=== PATIENT | female | born 1960 | race Caucasian/White ===

== ENCOUNTER 2019-04-09 15:11 | Emergency (ER) | payer OTHER ==
[2019-04-09 15:38] VITALS: BMI 32.2
--- NOTE | 2019-04-09 15:38 | PDOC ---
History of Present Illness - General Chief Complaint: Back Pain Stated Complaint: BACK PAIN Time Seen by Provider: 04/09/19 15:37 History Source: Patient, Family Exam Limitations: Language Barrier (n[place]ish) - History of Present Illness Initial Comments: 04/09/19 16:03 58yF w PMHx DM, HTN presenting w head/back/R hip pain s/p mechanical fall. At 230p, tripped at store, fell on R side hitting R frontal/temporal head, subsequent R head pain, midline neck pain, severe midline lumbar/sacral pain, R hip pain, midsternal chest pain with breathing. Denies LOC, not on anticoagulation, vision change, nausea/vomiting, SOB, extremity weakness/ numbness. Did not take any pain meds. Past History - Past Medical History Allergies/Adverse Reactions: Allergies Allergy/AdvReac Type Severity Reaction Status Date / Time No Known Allergies Allergy Verified 04/09/19 15:25 Home Medications: Ambulatory Orders Diazepam [Valium -] 5 mg PO BID #10 tablet 03/22/14 Naproxen [Naprosyn -] 500 mg PO BID #30 tablet 03/22/14 Lidocaine 5% Patch [Lidoderm Patch -] 1 patch TP DAILY #5 patch 04/09/19 Ondansetron [Zofran *Odt*] 4 mg SL TID #10 od.tablet 04/09/19 - Surgical History Abdominal Surgery: Yes (tubal ligation) - Psycho Social/Smoking Cessation Hx Smoking History: Unknown if ever smoked Have you smoked in the past 12 months: No Information on smoking cessation initiated: No Hx Alcohol Use: No Drug/Substance Use Hx: No Substance Use Type: None Review of Systems - Review of Systems Constitutional: No: Chills, Fever HEENTM: No: Eye Pain, Nose Pain, Throat Pain Respiratory: No: Cough, Shortness of Breath Cardiac (ROS): Yes: Chest Pain. No: Palpitations, Syncope ABD/GI: No: Abdominal Distended, Constipated, Diarrhea, Nausea, Vomiting : No: Burning, Dysuria, Hematuria Musculoskeletal: Yes: Back Pain, Neck Pain Integumentary: No: Bruising, Flushing Neurological: Yes: Headache. No: Seizure Psychiatric: No: Anxiety, Depression Endocrine: No: Excessive Sweating, Intolerance to Cold, Intolerance to Heat Hematologic/Lymphatic: No: Anemia, Blood Clots *Physical Exam - Vital Signs Last Vital Signs Temp Pulse Resp BP Pulse Ox 98.3 F 77 13 133/71 100 04/09/19 15:22 04/09/19 15:22 04/09/19 15:22 04/09/19 15:22 04/09/19 15:22 - Physical Exam General Appearance: Yes: Nourished, Appropriately Dressed, Moderate Distress HEENT: positive: EOMI, BRYCE, Normal Voice. negative: Scleral Icterus (R), Scleral Icterus (L), Rhinorrhea Neck: positive: Supple. negative: Tender (no midline tenderness), Rigid Respiratory/Chest: positive: Lungs Clear, Normal Breath Sounds. negative: Chest Tender, Respiratory Distress, Crackles, Rales, Rhonchi, Stridor, Wheezing Cardiovascular: positive: Regular Rhythm, S1, S2, Tachycardia. negative: Edema , Murmur Gastrointestinal/Abdominal: positive: Normal Bowel Sounds, Flat, Soft. negative : Tender, Organomegaly Musculoskeletal: positive: Vertebral Tenderness (diffuse midline/paraspinal lumbar/sacral regions). negative: CVA Tenderness (R), CVA Tenderness (L) Extremity: positive: Pelvis Stable, Other (abrasions garo knees) Integumentary: positive: Normal Color, Other. negative: Swelling, Bruising Neurologic: positive: frame expander II-XII NML intact, Fully Oriented, Alert, Normal Mood/ Affect, Normal Response, Motor Strength 5/5, Respond to painful stimul, Responsive. negative: Sensory Deficit, Confused, Disoriented ED Treatment Course - LABORATORY CBC & Chemistry Diagram: 04/09/19 16:10 04/09/19 16:09 Medical Decision Making - Medical Decision Making 04/09/19 16:18 Head/c-spine CT - no acute bleed/infarct/mass/fracture/subluxation Chest/Lumbar/sacral/R hip XR - no acute fracture/subluxation, clear lungs EKG NSR, TWI V1, HR 77, QTc 411 --- 58yF w PMHx DM, HTN presenting w head/back/R hip pain s/p mechanical fall. Neurovascular intact. Low concern for ACS (neg trop, NSR EKG) vs CVA (no focal neuro exam deficits). Chest/Lumbar/sacral/R hip XR do not show acute fracture/subluxation or acute lung pathology. Head/c-spine CT - no acute bleed/infarct/mass/fracture/ subluxation. C-spine cleared, c-collar removed. Given 4 morphine, tylenol, lido patch, toradol 18:25 - pt vomited. Given zofran Pt ambulated without support DC home w supportive care, lidoderm patch/zofran prescriptions Discharge - Discharge Information Problems reviewed: Yes Clinical Impression/Diagnosis: Low back pain Qualifiers: Chronicity: acute Back pain laterality: bilateral Sciatica presence: without sciatica Qualified Code(s): M54.5 - Low back pain Fall Qualifiers: Encounter type: initial encounter Qualified Code(s): W19.XXXA - Unspecified fall, initial encounter Condition: Improved Disposition: HOME - Admission No - Additional Discharge Information Prescriptions: Lidocaine 5% Patch [Lidoderm Patch -] 1 patch TP DAILY #5 patch Ondansetron [Zofran *Odt*] 4 mg SL TID #10 od.tablet - Follow up/Referral Referrals: Lindsey Waldrop [Primary Care Provider] - - Patient Discharge Instructions Patient Printed Discharge Instructions: DI for Musculoskeletal Pain Additional Instructions: Ice and take tylenol or ibuprofen or the prescribed lidoderm patch if you have pain. Take the prescribed zofran if you are vomiting Please follow up with your primary care doctor Come back to the ED if you cannot urinate or pass bowel movements, leg numbness or weakness, or fall again. - Post Discharge Activity Work/Back to School Note: Back to Work
[2019-04-09] MEDS ORDERED: morphine CARPU-JECT 4 MG/1 ML DISP.SYRIN IVPUSH ONE (15:59)
[2019-04-09] MEDS ORDERED: morphine SULFATE 4 MG/ML VIAL ONE (16:27)
[2019-04-09 16:46] LABS: BASO % 0.6 % (0-2.0); EOS % 1.1 % (0-4.5); HEMATOCRIT 44.3 % (32.4-45.2); HEMOGLOBIN 14.6 GM/dL (10.7-15.3); LYMPH % 20.5 % (8-40); MCH 28.3 pg (25.7-33.7); MCHC 32.9 g/dl (32.0-36.0); MEAN CELL VOLUME 86.1 fl (80-96); MEAN PLT VOLUME 11.1 fl (7.5-11.1); MONO % 3.7 % (3.8-10.2); NEUT % 74.1 % (42.8-82.8); PLATELET COUNT 163 K/MM3 (134-434); RBC 5.14 M/mm3 (3.60-5.2); WHITE BLOOD COUNT 7.7 K/mm3 (4.0-10.0)
[2019-04-09 17:11] LABS: ALBUMIN 4.1 g/dl (3.4-5.0); BILIRUBIN,TOTAL 0.5 mg/dL (0.2-1); BLOOD UREA NITROGEN 13.4 mg/dL (7-18); CALCIUM 9.9 mg/dL (8.5-10.1); CREATININE 0.7 mg/dL (0.55-1.3); POTASSIUM 4.1 mmol/L (3.5-5.1); TOT PROT 8.1 g/dl (6.4-8.2)
--- NOTE | 2019-04-09 17:25 | PDOC ---
Documentation entered by Darby Palencia SCRIBE, acting as scribe for Diamante Barry DO. Diamante Barry DO: This documentation has been prepared by the armand, Darby Palencia SCRIBE, under my direction and personally reviewed by me in its entirety. I confirm that the documentation accurately reflects all work, treatment, procedures, and medical decision making performed by me. Attending Attestation - Resident Resident Name: Tobias Chacon - ED Attending Attestation I have performed the following: I have examined & evaluated the patient, The case was reviewed & discussed with the resident, I agree w/resident's findings & plan, Exceptions are as noted - HPI HPI: 04/09/19 17:37 The patient is a 58 year old female, with a significant past medical history of DM, HTN, who presents to the emergency department s/p mechanical fall with back , head, and right hip pain. As per patient, at approximately 2:30PM she was in a store at which time she fell onto her right side hurting the right side of her head, neck, lower back, and hip. She notes associated pleuritic midsternal chest pain. She denies any LOC or urinary/bowel incontinence. She denies recent lightheadedness, paresthesias, or dizziness. She denies recent nausea or vomiting. Allergies: NKDA Primary Care Physician: Dr. Lindsey Waldrop. - Physicial Exam PE: 04/09/19 17:48 Constitutional: Awake, alert, oriented. No acute distress. Head: Normocephalic. Atraumatic Eyes: PERRL. EOMI. Conjunctivae are not pale. ENT: Mucous membranes are moist and intact. Posterior pharynx without exudates or erythema. Uvula midline. Neck: C-collar in place. Supple. Cardiovascular: Regular rate. Regular rhythm. S1, S2 regular. Pulmonary/Chest: No evidence of respiratory distress. Clear to auscultation bilaterally No wheezing, rales or rhonchi. Abdominal: Soft and non-distended. There is no tenderness. No rebound, guarding or rigidity. Back: No midline or paraspinal tenderness, no hematoma. Right lateral lower back pain, no midline tenderness. No CVA tenderness. Musculoskeletal: No edema. No cyanosis. No clubbing. Full range of motion in all extremities. Skin: Skin is warm and dry. No petechiae. No purpura. Neurological: +able to wiggle the toes, neurovascularly intact. Alert and oriented to person, place, and time. Cranial nerves II-XII are grossly intact. Normal speech. Strength is grossly symmetric. No sensory deficits. Psychiatric: Good eye contact. Normal interaction, affect and behavior. - Medical Decision Making 04/09/19 17:25 I, Dr. Diamante Barry, DO, attest that this document has been prepared under my direction and personally reviewed by me in its entirety. I further attest, that it accurately reflects all work, treatment, procedures and medical decision -making performed by me. 04/09/19 17:51 a/p: 58yo female with a slip and fall earlier today -hit the right side of her body -unable to get up -c/o lbp, R sided neck pain -neuro intact -no loc -xrays and ct/labs ordered -xrays without acute fx -abrasions to knees -will give pain control -pending ct read -will monitor and reassess -pt will need to ambulate in order to dc to home 04/09/19 18:37 no acute findings on head ct or c spine ct 04/09/19 18:38 resident to clear the c spine 04/09/19 19:11 pt will need to ambulate and tolerate po to be dc to home will need urine to dc Heart Score/ECG Review - ECG Intrepretation Comment:: 04/09/19 17:25 sinus at 77, nl axis, nl interval, no acute st/t wave findings
[2019-04-09] MEDS ORDERED: LIDOCAINE 5% TOPICAL PATCH TP ONE (17:33)
[2019-04-09] MEDS ORDERED: ACETAMINOPHEN 1000 MG/100 ML VIAL (NON FORMULARY) IVPB ONE (17:33)
[2019-04-09] MEDS ORDERED: LIDOCAINE 5% TOPICAL PATCH ONE (17:40)
[2019-04-09] MEDS ORDERED: ACETAMINOPHEN INJECTION 100 ML IVPB ONE (17:40)
[2019-04-09] MEDS ORDERED: ONDANSETRON 4 MG/2 ML VIAL IVPUSH ONE (18:22)
[2019-04-09] MEDS ORDERED: KETOROLAC TROMETHAMINE 30 MG/1 ML VIAL IVPUSH ONE (18:29)
[2019-04-09] MEDS ORDERED: ONDANSETRON 4 MG/2 ML VIAL ONE (18:40)
[2019-04-09] MEDS ORDERED: KETOROLAC TROMETHAMINE 30 MG/1 ML VIAL ONE (18:40)
[2019-04-09 19:51] VITALS: BP 117/70; PULSE 75; TEMP 98.4
[2019-04-09 20:01] LABS: PH,URINE 8.5 (5.0-8.0); URINE APPEARANCE CLEAR; URINE BILIRUBIN NEGATIVE (NEGATIVE); URINE COLOR YELLOW; URINE GLUCOSE (UA) NEGATIVE (NEGATIVE); URINE KETONE NEGATIVE (NEGATIVE); URINE LEUK ESTERASE NEGATIVE (NEGATIVE); URINE NITRITE NEGATIVE (NEGATIVE); URINE PROTEIN NEGATIVE (NEGATIVE); URINE UROBILINOGEN 0.2 mg/dL (0.2-1.0)
[2019-04-09] MEDS ORDERED: LIDOCAINE PATCH REMOVAL MC SCH (22:00)
--- NOTE | 2019-04-10 09:18 | EKG ---
Test Reason : Blood Pressure : / mmHG Vent. Rate : 077 BPM Atrial Rate : 077 BPM P-R Int : 158 ms QRS Dur : 090 ms QT Int : 364 ms P-R-T Axes : 047 050 039 degrees QTc Int : 411 ms NORMAL SINUS RHYTHM NORMAL ECG WHEN COMPARED WITH ECG OF 30-MAR-2005 15:47, NO SIGNIFICANT CHANGE WAS FOUND Confirmed by Meena Ayala ([id number]) on 04/10/2019 9:18:35 AM Referred By: Confirmed By:Meena Ayala
== END 2019-04-09 20:13 | disposition home or self-care (01) ==
LOC: JER 15:11
PROC: 3E033GC Introduction of Other Therapeutic Substance into Peripheral Vein, Percutaneous Approach (ICD-10-PCS; principal; 2019-04-09)
PROC: 3E033NZ Introduction of Analgesics, Hypnotics, Sedatives into Peripheral Vein, Percutaneous Approach (ICD-10-PCS; 2019-04-09)
PROC: 3E033NZ Introduction of Analgesics, Hypnotics, Sedatives into Peripheral Vein, Percutaneous Approach (ICD-10-PCS; 2019-04-09)
PROC: 3E0333Z Introduction of Anti-inflammatory into Peripheral Vein, Percutaneous Approach (ICD-10-PCS; 2019-04-09)
DX: M54.5 Low back pain (principal); M54.2 Cervicalgia; M25.551 Pain in right hip; S80.212A Abrasion, left knee, initial encounter; S80.211A Abrasion, right knee, initial encounter; W01.0XXA Fall on same level from slipping, tripping and stumbling without subsequent striking against object, initial encounter; Y93.89 Activity, other specified; Y92.512 Supermarket, store or market as the place of occurrence of the external cause; Y99.8 Other external cause status; I10 Essential (primary) hypertension; E11.9 Type 2 diabetes mellitus without complications; Z98.51 Tubal ligation status
CPT/HCPCS: 36415; 70450-TC; 71045-TC-FY; 72100-TC-FY; 72125-TC; 73523-TC-FY; 80053; 81003; 82550; 84484; 85025; 93005; 93010; 96374; 96375; 99284-25; J0131

== ENCOUNTER 2021-07-12 16:55 | Emergency (ER) | payer OTHER ==
[2021-07-12 17:11] VITALS: BP 158/79; PULSE 86; TEMP 98.5; BMI 32.5
[2021-07-12] MEDS ORDERED: ACETAMINOPHEN 1000 MG/100 ML BAG IVPB ONE (17:35)
[2021-07-12] MEDS ORDERED: ACETAMINOPHEN INJECTION 100 ML IVPB ONE (17:42)
[2021-07-12 18:07] LABS: HEMATOCRIT 41.9 % (32.4-45.2); HEMOGLOBIN 14.5 G/dL (10.7-15.3); MCH 29.4 pg (25.7-33.7); MCHC 34.6 g/dl (32.0-36.0); MEAN CELL VOLUME 85.1 fl (80-96); MEAN PLT VOLUME 11.1 fl (7.5-11.1); PLATELET COUNT 143.2 10^3/uL (134-434); RBC 4.92 10^6/uL (3.60-5.2); RDW 14.9 % (11.6-15.6)
[2021-07-12 18:10] LABS: EPITHELIAL CELLS RARE /hpf
[2021-07-12 18:13] LABS: ALBUMIN 4.2 g/dl (3.4-5.0); BILIRUBIN,TOTAL 0.8 mg/dl (0.2-1); CALCIUM 10.4 mg/dl (8.5-10); CREATININE 0.6 mg/dl (0.55-1.3); TOT PROT 7.5 g/dl (6.4-8.2)
[2021-07-12 18:27] LABS: ANISOCYTOSIS RARE
== END 2021-07-12 20:10 | disposition home or self-care (01) ==
LOC: FER 16:55
PROC: 3E0333Z Introduction of Anti-inflammatory into Peripheral Vein, Percutaneous Approach (ICD-10-PCS; principal; 2021-07-12)
DX: N20.0 Calculus of kidney (principal)
CPT/HCPCS: 36415; 74176-TC; 80053; 81003; 81015; 85025; 87086; 99284-25

== ENCOUNTER 2021-08-22 07:30 | Emergency (ER) | payer OTHER ==
[2021-08-22 07:38] VITALS: BP 130/66; PULSE 70; TEMP 97.7; BMI 32.4
[2021-08-22] MEDS ORDERED: SODIUM CHLORIDE 1,000 ML IV STA (07:53)
[2021-08-22] MEDS ORDERED: ACETAMINOPHEN 1000 MG/100 ML BAG IVPB ONE ×2 (07:53→10:37)
[2021-08-22] MEDS ORDERED: ONDANSETRON 4 MG/2 ML VIAL IVPUSH ONE ×2 (07:53→10:58)
[2021-08-22] MEDS ORDERED: KETOROLAC TROMETHAMINE 30 MG/1 ML VIAL IVPUSH ONE (07:54)
[2021-08-22] MEDS ORDERED: ONDANSETRON 4 MG/2 ML VIAL ONE (07:56)
[2021-08-22] MEDS ORDERED: KETOROLAC TROMETHAMINE 30 MG/1 ML VIAL ONE (07:56)
[2021-08-22] MEDS ORDERED: morphine CARPU-JECT 4 MG/1 ML DISP.SYRIN IVPUSH ONE (08:31)
[2021-08-22 08:32] LABS: HEMATOCRIT 41.2 % (32.4-45.2); HEMOGLOBIN 14.2 G/dL (10.7-15.3); MCH 29.5 pg (25.7-33.7); MCHC 34.6 g/dl (32.0-36.0); MEAN CELL VOLUME 85.4 fl (80-96); MEAN PLT VOLUME 11.2 fl (7.5-11.1); PLATELET COUNT 164.8 10^3/uL (134-434); RBC 4.82 10^6/uL (3.60-5.2); RDW 14.3 % (11.6-15.6); WHITE BLOOD COUNT 7.8 10^3/uL (4.0-10.8)
[2021-08-22] MEDS ORDERED: morphine SULFATE 4 MG/ML VIAL ONE (08:34)
[2021-08-22 08:40] LABS: ALBUMIN 4.5 g/dl (3.4-5.0); BILIRUBIN,TOTAL 1.1 mg/dl (0.2-1); CALCIUM 10.1 mg/dl (8.5-10); CREATININE 0.7 mg/dl (0.55-1.3); TOT PROT 7.4 g/dl (6.4-8.2)
[2021-08-22 08:49] LABS: EPITHELIAL CELLS MODERATE /hpf
[2021-08-22] MEDS ORDERED: ACETAMINOPHEN INJECTION 100 ML IVPB ONE (10:42)
== END 2021-08-22 11:27 | disposition home or self-care (01) ==
LOC: FER 07:30
PROC: 3E0333Z Introduction of Anti-inflammatory into Peripheral Vein, Percutaneous Approach (ICD-10-PCS; principal; 2021-08-22)
PROC: 3E0333Z Introduction of Anti-inflammatory into Peripheral Vein, Percutaneous Approach (ICD-10-PCS; 2021-08-22)
PROC: 3E033GC Introduction of Other Therapeutic Substance into Peripheral Vein, Percutaneous Approach (ICD-10-PCS; 2021-08-22)
PROC: 3E0337Z Introduction of Electrolytic and Water Balance Substance into Peripheral Vein, Percutaneous Approach (ICD-10-PCS; 2021-08-22)
DX: N20.0 Calculus of kidney (principal)
CPT/HCPCS: 36415; 74176-TC; 80053; 81003; 81015; 85025; 87086; 99284-25

== ENCOUNTER 2022-04-26 09:03 | Emergency (ER) | payer OTHER ==
[2022-04-26] MEDS ORDERED: SODIUM CHLORIDE 0.9% 500 ML INFUS.BAG IV ONE (09:07)
[2022-04-26] MEDS ORDERED: KETOROLAC TROMETHAMINE 15 MG/ML VIAL IVPUSH ONE (09:14)
[2022-04-26 09:29] VITALS: BP 130/85; PULSE 102; RESP 16; TEMP 99.7; BMI 32.2
[2022-04-26] MEDS ORDERED: KETOROLAC TROMETHAMINE 15 MG/ML VIAL ONE (09:40)
[2022-04-26 10:26] LABS: HEMATOCRIT 43.1 % (32.4-45.2); HEMOGLOBIN 14.8 G/dL (10.7-15.3); MCH 29.2 pg (25.7-33.7); MCHC 34.2 g/dl (32.0-36.0); MEAN CELL VOLUME 85.2 fl (80-96); MEAN PLT VOLUME 10.6 fl (7.5-11.1); PLATELET COUNT 141.3 10^3/uL (134-434); RBC 5.06 10^6/uL (3.60-5.2); RDW 14.8 % (11.6-15.6); WHITE BLOOD COUNT 5.4 10^3/uL (4.0-10.8)
[2022-04-26 10:31] LABS: ALBUMIN 4.2 g/dl (3.4-5.0); BILIRUBIN,TOTAL 0.8 mg/dl (0.2-1); CALCIUM 9.5 mg/dl (8.5-10); CREATININE 0.6 mg/dl (0.55-1.3); TOT PROT 7.4 g/dl (6.4-8.2)
== END 2022-04-26 12:04 | disposition home or self-care (01) ==
LOC: FER 09:03 → SUPCPDRO 09:03 → FER 12:04
PROC: 3E033GC Introduction of Other Therapeutic Substance into Peripheral Vein, Percutaneous Approach (ICD-10-PCS; principal; 2022-04-26)
DX: J06.9 Acute upper respiratory infection, unspecified (principal)
CPT/HCPCS: 0241U-QW; 36415; 71046-TC-FY; 80053; 82550; 83605; 84484; 85027; 93005; 99285-25

== ENCOUNTER 2022-11-08 07:01 | Inpatient (IN) | payer OTHER ==
[2022-11-08 07:09] VITALS: BMI 32.2
[2022-11-08] MEDS ORDERED: ONDANSETRON 4 MG/2 ML VIAL IVPUSH ONE ×2 (07:20→13:37)
[2022-11-08] MEDS ORDERED: ACETAMINOPHEN 1000 MG/100 ML BAG IVPB ONE (07:20)
[2022-11-08] MEDS ORDERED: SODIUM CHLORIDE 0.9% 1000 ML INFUS.BAG IV ONE (07:20)
[2022-11-08] MEDS ORDERED: ACETAMINOPHEN INJECTION 100 ML IVPB ONE (07:30)
[2022-11-08] MEDS ORDERED: FAMOTIDINE 20 MG/50 ML IVPB 20 MG/50 ML MG IVPB ONE ×2 (07:30)
[2022-11-08] MEDS ORDERED: ONDANSETRON 4 MG/2 ML VIAL ONE ×2 (07:30→13:37)
[2022-11-08 08:41] LABS: HEMATOCRIT 43.8 % (32.4-45.2); HEMOGLOBIN 14.2 G/dL (10.7-15.3); MCH 28.3 pg (25.7-33.7); MCHC 32.4 g/dl (32.0-36.0); MEAN CELL VOLUME 87.4 fl (80-96); MEAN PLT VOLUME 11.6 fl (7.5-11.1); PLATELET COUNT 149.5 10^3/uL (134-434); RBC 5.01 10^6/uL (3.60-5.2); RDW 14.7 % (11.6-15.6)
[2022-11-08] MEDS ORDERED: morphine CARPU-JECT 2 MG/1 ML DISP.SYRIN IVPUSH ONE (09:15)
[2022-11-08] MEDS ORDERED: TAMSULOSIN HCL 0.4 MG CAP PO ONE (09:27)
[2022-11-08] MEDS ORDERED: CEFTRIAXONE 1 GM in DEXTROSE 5%-WATER - 100 ML IVPB ONE (09:27)
[2022-11-08] MEDS ORDERED: morphine SULFATE 4 MG/ML VIAL ONE (09:36)
[2022-11-08] MEDS ORDERED: cefTRIAXone SODIUM 1 GM VIAL ONE (09:36)
[2022-11-08] MEDS ORDERED: TAMSULOSIN HCL 0.4 MG CAP ONE (09:37)
[2022-11-08 09:44] LABS: ALBUMIN 4.6 g/dl (3.4-5.0); BLOOD UREA NITROGEN 15.6 mg/dl (7-18); CALCIUM 9.6 mg/dl (8.5-10.1); CREATININE 0.8 mg/dl (0.6-1.3); POTASSIUM 4.2 mmol/L (3.5-5.1); SGOT/AST 27.1 U/L (15-37); SGPT/ALT 35.4 U/L (7-52); TOT PROT 7.7 g/dl (6.4-8.2)
[2022-11-08 10:10] LABS: EPITHELIAL CELLS MODERATE /hpf
[2022-11-08 10:22] LABS: BILIRUBIN,TOTAL 0.9 mg/dL (0.2-1)
[2022-11-08] MEDS: INSULIN SLIDING SCALE (NOVOLOG) 1 VIAL SQ SCH ×2 (17:08→21:42)
[2022-11-08] MEDS: KETOROLAC TROMETHAMINE 30 MG/1 ML VIAL IVPUSH PRN (17:35)
[2022-11-09] MEDS: PIPERACILLIN/TAZOB 3.375 GM 3.375 GM in DEXTROSE 5%-WATER - 50 ML IVPB SCH ×2 (02:44→09:16)
[2022-11-09] MEDS: INSULIN SLIDING SCALE (NOVOLOG) 1 VIAL SQ SCH ×4 (06:07→21:17)
[2022-11-09] MEDS: amLODIPine BESYLATE 5 MG TABLET (FP) PO SCH (09:16)
[2022-11-09] MEDS: metoPROLOL SUCCINATE 25 MG TAB.SR.24H (FP) PO SCH (09:16)
[2022-11-09] MEDS: ACETAMINOPHEN 325 MG TABLET (FP) PO PRN (11:17)
[2022-11-09] MEDS: CEFTRIAXONE 1 GM in DEXTROSE 5%-WATER - 50 ML IVPB SCH (13:53)
[2022-11-09] MEDS: KETOROLAC TROMETHAMINE 30 MG/1 ML VIAL IVPUSH PRN (18:32)
[2022-11-10] MEDS: INSULIN SLIDING SCALE (NOVOLOG) 1 VIAL SQ SCH ×4 (06:00→21:07)
[2022-11-10] MEDS: CEFTRIAXONE 1 GM in DEXTROSE 5%-WATER - 50 ML IVPB SCH (09:43)
[2022-11-10] MEDS: metoPROLOL SUCCINATE 25 MG TAB.SR.24H (FP) PO SCH (09:43)
[2022-11-10] MEDS: amLODIPine BESYLATE 5 MG TABLET (FP) PO SCH (09:43)
[2022-11-10] MEDS: D5-1/2NS+20 MEQ KCL - 20 MEQ/1,000 ML INFUS.BAG IV SCH (15:15)
[2022-11-11] MEDS: INSULIN SLIDING SCALE (NOVOLOG) 1 VIAL SQ SCH ×4 (06:02→22:50)
[2022-11-11] MEDS: metoPROLOL SUCCINATE 25 MG TAB.SR.24H (FP) PO SCH ×2 (08:57→11:28)
[2022-11-11] MEDS: amLODIPine BESYLATE 5 MG TABLET (FP) PO SCH ×2 (08:57→11:28)
[2022-11-11] MEDS: CEFTRIAXONE 1 GM in DEXTROSE 5%-WATER - 50 ML IVPB SCH ×3 (08:58→09:56)
[2022-11-11] MEDS: D5-1/2NS+20 MEQ KCL - 20 MEQ/1,000 ML INFUS.BAG IV SCH (17:03)
[2022-11-12] MEDS: INSULIN SLIDING SCALE (NOVOLOG) 1 VIAL SQ SCH ×4 (07:57→23:19)
[2022-11-12] MEDS: amLODIPine BESYLATE 5 MG TABLET (FP) PO SCH (09:25)
[2022-11-12] MEDS: CEFTRIAXONE 1 GM in DEXTROSE 5%-WATER - 50 ML IVPB SCH (09:25)
[2022-11-12] MEDS: metoPROLOL SUCCINATE 25 MG TAB.SR.24H (FP) PO SCH (09:25)
[2022-11-12] MEDS: ACETAMINOPHEN 325 MG TABLET (FP) PO PRN ×2 (09:32→23:19)
[2022-11-12 10:26] LABS: POTASSIUM 4.2 mmol/L (3.5-5.1)
[2022-11-12 10:28] LABS: ALBUMIN 3.7 g/dl (3.4-5.0); BLOOD UREA NITROGEN 18.6 mg/dL (7-18)
[2022-11-12 10:31] LABS: CREATININE 0.7 mg/dL (0.55-1.3)
[2022-11-12 10:33] LABS: BILIRUBIN,TOTAL 0.7 mg/dL (0.2-1)
[2022-11-12] MEDS ORDERED: MIDAZOLAM HCL 2 MG/2 ML SINGLE DOSE VIAL ONE ×2 (10:38→11:14)
[2022-11-12] MEDS ORDERED: PROPOFOL 20 ML ONE (10:38)
[2022-11-12] MEDS ORDERED: BUPIVACAINE HCL/PF 0.5% (5MG/ML) 10 ML VIAL ONE (10:43)
[2022-11-12] MEDS ORDERED: ONDANSETRON 4 MG/2 ML VIAL IVPUSH PRN ×2 (11:11→12:28)
[2022-11-12] MEDS ORDERED: LACTATED RINGERS SOLUTION 1,000 ML IV SCH ×2 (11:15→12:28)
[2022-11-12] MEDS ORDERED: ceFAZolin SODIUM 1 GM VIAL ONE (11:35)
[2022-11-12] MEDS ORDERED: ceFAZolin SODIUM 1 GM VIAL IVPB ONE (11:36)
[2022-11-12] MEDS ORDERED: ONDANSETRON 4 MG/2 ML VIAL ONE (11:42)
[2022-11-12] MEDS ORDERED: KETOROLAC TROMETHAMINE 30 MG/1 ML VIAL IVPUSH PRN (12:28)
[2022-11-12] MEDS ORDERED: D5-1/2NS+20 MEQ KCL - 20 MEQ/1,000 ML INFUS.BAG IV SCH (12:28)
[2022-11-13] MEDS ORDERED: INSULIN SLIDING SCALE (NOVOLOG) 1 VIAL SQ ONE (07:01)
[2022-11-13] MEDS: ACETAMINOPHEN 325 MG TABLET (FP) PO PRN ×3 (08:05→22:09)
[2022-11-13] MEDS: INSULIN SLIDING SCALE (NOVOLOG) 1 VIAL SQ SCH ×4 (08:43→22:09)
[2022-11-13] MEDS: CEFTRIAXONE 1 GM in DEXTROSE 5%-WATER - 50 ML IVPB SCH (09:48)
[2022-11-13] MEDS: amLODIPine BESYLATE 5 MG TABLET (FP) PO SCH (10:00)
[2022-11-13] MEDS: metoPROLOL SUCCINATE 25 MG TAB.SR.24H (FP) PO SCH (10:00)
[2022-11-13 11:02] LABS: BASO % 0.8 % (0-2.0); EOS % 2.1 % (0-4.5); HEMATOCRIT 38.4 % (32.4-45.2); HEMOGLOBIN 12.9 GM/dL (10.7-15.3); LYMPH % 28.5 % (8-40); MCH 28.1 pg (25.7-33.7); MCHC 33.7 g/dl (32.0-36.0); MEAN CELL VOLUME 83.5 fl (80-96); MEAN PLT VOLUME 11.5 fl (7.5-11.1); MONO % 4.8 % (3.8-10.2); NEUT % 63.8 % (42.8-82.8); PLATELET COUNT 165 10^3/uL (134-434); RBC 4.59 M/mm3 (3.60-5.2); RDW 15.1 % (11.6-15.6)
[2022-11-13 11:29] LABS: POTASSIUM 4.1 mmol/L (3.5-5.1)
[2022-11-13 11:49] LABS: BLOOD UREA NITROGEN 18.2 mg/dL (7-18); CALCIUM 9.1 mg/dL (8.5-10.1)
[2022-11-13 11:50] LABS: ALBUMIN 3.7 g/dl (3.4-5.0)
[2022-11-13 11:52] LABS: CREATININE 0.7 mg/dL (0.55-1.3)
[2022-11-13 11:53] LABS: TOT PROT 6.9 g/dl (6.4-8.2)
[2022-11-14] MEDS: INSULIN SLIDING SCALE (NOVOLOG) 1 VIAL SQ SCH ×2 (06:44→11:13)
[2022-11-14 07:09] VITALS: TEMP 98.2
[2022-11-14] MEDS: metoPROLOL SUCCINATE 25 MG TAB.SR.24H (FP) PO SCH (10:07)
[2022-11-14] MEDS: amLODIPine BESYLATE 5 MG TABLET (FP) PO SCH (10:07)
[2022-11-14] MEDS: CEFTRIAXONE 1 GM in DEXTROSE 5%-WATER - 50 ML IVPB SCH (10:07)
[2022-11-14] MEDS: ACETAMINOPHEN 325 MG TABLET (FP) PO PRN (13:16)
[2022-11-14 14:50] VITALS: BP 128/64; PULSE 76; RESP 16
== END 2022-11-14 15:49 | disposition home or self-care (01) | DRG 661 ==
LOC: FER 07:01 → J5S 14:55 → UNDOADMOB 17:06 → J5S 17:06 → INTOOBSV 17:06 → OBSVTOIN 11-10 14:04
PROVIDERS: ADMIT Family Medicine; ATTEND Family Medicine
PROC: BT1DZZZ Fluoroscopy of Right Kidney, Ureter and Bladder (ICD-10-PCS; 2022-11-12)
PROC: 0T768DZ Dilation of Right Ureter with Intraluminal Device, Via Natural or Artificial Opening Endoscopic (ICD-10-PCS; principal; 2022-11-12 12:00)
DX: N13.6 Pyonephrosis (principal); I10 Essential (primary) hypertension; E11.9 Type 2 diabetes mellitus without complications; K29.60 Other gastritis without bleeding; R31.9 Hematuria, unspecified
CPT/HCPCS: 36415; 74018-TC-FY; 74176-TC; 76000-TC-FY; 80053; 81003; 81015; 82550; 82962; 84484; 85025; 85027; 87086; 93005; 94760; 99285-25; C1758; C2617; G0378

== ENCOUNTER 2022-11-27 15:19 | Inpatient (IN) | payer OTHER ==
[2022-11-27 15:25] VITALS: BMI 31.4
[2022-11-27] MEDS ORDERED: morphine CARPU-JECT 4 MG/1 ML DISP.SYRIN IVPUSH ONE (16:08)
[2022-11-27] MEDS ORDERED: SODIUM CHLORIDE 0.9% 500 ML INFUS.BAG IV ONE (16:10)
[2022-11-27] MEDS ORDERED: morphine SULFATE 4 MG/ML VIAL ONE (16:24)
[2022-11-27 16:56] LABS: BASO % 0.7 % (0-2.0); HEMATOCRIT 40.1 % (32.4-45.2); HEMOGLOBIN 13.6 GM/dL (10.7-15.3); LYMPH % 11.9 % (8-40); MCH 28.6 pg (25.7-33.7); MCHC 33.8 g/dl (32.0-36.0); MEAN CELL VOLUME 84.6 fl (80-96); MEAN PLT VOLUME 10.8 fl (7.5-11.1); NEUT % 80.4 % (42.8-82.8); PLATELET COUNT 178 10^3/uL (134-434); RBC 4.74 M/mm3 (3.60-5.2); RDW 14.7 % (11.6-15.6); WHITE BLOOD COUNT 8.7 K/mm3 (4.0-10.0)
[2022-11-27 17:03] LABS: EPI CELLS 9 /uL (0-25.1); HYALINE CASTS 0 /uL (0-3.1); URINE APPEARANCE CLEAR; URINE BACTERIA 198 /uL (0-1359); URINE BILIRUBIN NEGATIVE (NEGATIVE); URINE COLOR YELLOW; URINE GLUCOSE (UA) NEGATIVE (NEGATIVE); URINE KETONE NEGATIVE (NEGATIVE); URINE LEUK ESTERASE 2+ (NEGATIVE); URINE NITRITE NEGATIVE (NEGATIVE); URINE PROTEIN NEGATIVE (NEGATIVE); URINE UROBILINOGEN 0.2 mg/dL (0.2-1.0); URINE WBC 234 /uL (0-25.8)
[2022-11-27 17:14] LABS: POTASSIUM 4.2 mmol/L (3.5-5.1)
[2022-11-27 17:16] LABS: CALCIUM 9.6 mg/dL (8.5-10.1)
[2022-11-27 17:17] LABS: BLOOD UREA NITROGEN 15.9 mg/dL (7-18)
[2022-11-27 17:20] LABS: CREATININE 0.8 mg/dL (0.55-1.3)
[2022-11-27] MEDS ORDERED: CEFTRIAXONE 1,000 MG in DEXTROSE 5%-WATER - 50 ML IVPB ONE (18:14)
[2022-11-27] MEDS ORDERED: TAMSULOSIN HCL 0.4 MG CAP PO ONE (18:34)
[2022-11-27] MEDS ORDERED: TAMSULOSIN HCL 0.4 MG CAP ONE (18:39)
[2022-11-27] MEDS ORDERED: CEFTRIAXONE 1 GM/50 ML BAG ONE (18:39)
[2022-11-27 19:39] LABS: URINE RBC 985.3 /uL (0-23.9)
[2022-11-27 19:40] LABS: YEAST MODERATE (NEGATIVE)
[2022-11-27] MEDS ORDERED: morphine SULFATE 4 MG/ML VIAL IVPUSH PRN (21:36)
[2022-11-28] MEDS: ACETAMINOPHEN 1000 MG/100 ML BAG IVPB PRN ×4 (00:06→18:14)
[2022-11-28] MEDS: DEXTROSE 5%-NORMAL SALINE 1,000 ML IV SCH ×2 (00:06→18:14)
[2022-11-28] MEDS ORDERED: ONDANSETRON 4 MG/2 ML VIAL IVPUSH ONE (05:50)
[2022-11-28] MEDS: TAMSULOSIN HCL 0.4 MG CAP PO SCH ×2 (09:00→09:30)
[2022-11-28] MEDS: CEFTRIAXONE 1 GM in DEXTROSE 5%-WATER - 50 ML IVPB SCH (09:31)
[2022-11-28 09:39] LABS: BASO % 0.5 % (0-2.0); EOS % 0.1 % (0-4.5); HEMATOCRIT 37.4 % (32.4-45.2); HEMOGLOBIN 12.3 GM/dL (10.7-15.3); LYMPH % 5.2 % (8-40); MCH 28.2 pg (25.7-33.7); MCHC 32.9 g/dl (32.0-36.0); MEAN CELL VOLUME 85.7 fl (80-96); MEAN PLT VOLUME 11.1 fl (7.5-11.1); MONO % 5.5 % (3.8-10.2); NEUT % 88.7 % (42.8-82.8); PLATELET COUNT 150 10^3/uL (134-434); RBC 4.36 M/mm3 (3.60-5.2); RDW 14.6 % (11.6-15.6); WHITE BLOOD COUNT 7.1 K/mm3 (4.0-10.0)
[2022-11-28 09:45] LABS: POTASSIUM 4.3 mmol/L (3.5-5.1)
[2022-11-28 09:46] LABS: CALCIUM 9.1 mg/dL (8.5-10.1)
[2022-11-28 09:50] LABS: CREATININE 0.9 mg/dL (0.55-1.3)
[2022-11-29] MEDS: DEXTROSE 5%-NORMAL SALINE 1,000 ML IV SCH ×2 (01:07→19:02)
[2022-11-29] MEDS: TAMSULOSIN HCL 0.4 MG CAP PO SCH (10:38)
[2022-11-29] MEDS: CEFTRIAXONE 1 GM in DEXTROSE 5%-WATER - 50 ML IVPB SCH (10:38)
[2022-11-29] MEDS: ACETAMINOPHEN 325 MG TABLET (FP) PO PRN ×2 (11:02→17:09)
[2022-11-30] MEDS: ACETAMINOPHEN 325 MG TABLET (FP) PO PRN ×3 (00:09→18:40)
[2022-11-30] MEDS: DEXTROSE 5%-NORMAL SALINE 1,000 ML IV SCH ×2 (06:14→14:10)
[2022-11-30] MEDS: TAMSULOSIN HCL 0.4 MG CAP PO SCH (08:38)
[2022-11-30] MEDS ORDERED: PIPERACILLIN/TAZOB 3.375 GM 3.375 GM in DEXTROSE 5%-WATER - 50 ML IVPB SCH ×2 (10:00→18:00)
[2022-11-30] MEDS ORDERED: PROPOFOL 20 ML ONE (10:18)
[2022-11-30] MEDS ORDERED: MIDAZOLAM HCL 2 MG/2 ML SINGLE DOSE VIAL ONE (10:19)
[2022-11-30] MEDS ORDERED: DEXAMETHASONE SOD PHOSPHATE 4 MG/1 ML VIAL ONE (10:42)
[2022-11-30] MEDS ORDERED: ONDANSETRON 4 MG/2 ML VIAL ONE (10:42)
[2022-11-30] MEDS ORDERED: IOVERSOL 300 MG/ML ML IV ONE (11:03)
[2022-11-30] MEDS ORDERED: ONDANSETRON 4 MG/2 ML VIAL IVPUSH PRN ×2 (11:25→12:24)
[2022-11-30] MEDS ORDERED: LACTATED RINGERS SOLUTION 1,000 ML IV SCH ×2 (11:30→12:24)
[2022-11-30 12:41] LABS: EPI CELLS 12 /uL (0-25.1); HYALINE CASTS 1 /uL (0-3.1); URINE APPEARANCE CLEAR; URINE BACTERIA 2 /uL (0-1359); URINE BILIRUBIN NEGATIVE (NEGATIVE); URINE COLOR YELLOW; URINE GLUCOSE (UA) NEGATIVE (NEGATIVE); URINE KETONE NEGATIVE (NEGATIVE); URINE LEUK ESTERASE NEGATIVE (NEGATIVE); URINE NITRITE NEGATIVE (NEGATIVE); URINE PROTEIN TRACE (NEGATIVE); URINE RBC 49 /uL (0-23.9); URINE UROBILINOGEN 0.2 mg/dL (0.2-1.0); URINE WBC 47 /uL (0-25.8)
[2022-11-30] MEDS: PIPERACILLIN/TAZOB 3.375 GM 3.375 GM in DEXTROSE 5%-WATER - 50 ML IVPB SCH ×4 (14:11→18:31)
[2022-11-30 15:42] LABS: BASO % 0.7 % (0-2.0); EOS % 0.2 % (0-4.5); HEMATOCRIT 34.3 % (32.4-45.2); HEMOGLOBIN 11.2 GM/dL (10.7-15.3); LYMPH % 7.6 % (8-40); MCH 27.9 pg (25.7-33.7); MCHC 32.7 g/dl (32.0-36.0); MEAN CELL VOLUME 85.2 fl (80-96); MEAN PLT VOLUME 10.7 fl (7.5-11.1); MONO % 2.5 % (3.8-10.2); PLATELET COUNT 129 10^3/uL (134-434); RBC 4.02 M/mm3 (3.60-5.2); RDW 14.2 % (11.6-15.6); WHITE BLOOD COUNT 4.8 K/mm3 (4.0-10.0)
[2022-11-30 16:03] LABS: POTASSIUM 3.6 mmol/L (3.5-5.1)
[2022-11-30 16:04] LABS: CALCIUM 8.7 mg/dL (8.5-10.1)
[2022-11-30 16:05] LABS: BLOOD UREA NITROGEN 7.8 mg/dL (7-18)
[2022-11-30 16:08] LABS: CREATININE 0.8 mg/dL (0.55-1.3)
[2022-11-30 16:10] LABS: BILIRUBIN,TOTAL 0.7 mg/dL (0.2-1); TOT PROT 6.6 g/dl (6.4-8.2)
[2022-11-30 16:17] LABS: ALBUMIN 2.9 g/dl (3.4-5.0)
[2022-11-30] MEDS ORDERED: SENNOSIDES 8.6MG TABLET (FP) PO PRN (20:18)
[2022-12-01] MEDS: PIPERACILLIN/TAZOB 3.375 GM 3.375 GM in DEXTROSE 5%-WATER - 50 ML IVPB SCH ×3 (02:21→17:15)
[2022-12-01] MEDS: ACETAMINOPHEN 325 MG TABLET (FP) PO PRN (05:38)
[2022-12-01] MEDS: TAMSULOSIN HCL 0.4 MG CAP PO SCH (09:30)
[2022-12-01] MEDS ORDERED: POLYETHYLENE GLYCOL (HEALTHYLAX) 3350 17 GM PACKET PO SCH (10:15)
[2022-12-01 11:12] LABS: BASO % 0.6 % (0-2.0); EOS % 0.6 % (0-4.5); HEMATOCRIT 35.3 % (32.4-45.2); HEMOGLOBIN 11.4 GM/dL (10.7-15.3); LYMPH % 14.9 % (8-40); MCH 27.8 pg (25.7-33.7); MCHC 32.3 g/dl (32.0-36.0); MEAN PLT VOLUME 10.7 fl (7.5-11.1); MONO % 7.3 % (3.8-10.2); NEUT % 76.6 % (42.8-82.8); PLATELET COUNT 154 10^3/uL (134-434); RBC 4.11 M/mm3 (3.60-5.2); RDW 14.5 % (11.6-15.6); WHITE BLOOD COUNT 5.3 K/mm3 (4.0-10.0)
[2022-12-01 11:17] LABS: INR 1.12 (0.83-1.09)
[2022-12-01 11:34] LABS: POTASSIUM 3.2 mmol/L (3.5-5.1)
[2022-12-01 11:38] LABS: BLOOD UREA NITROGEN 14.7 mg/dL (7-18); CALCIUM 9.3 mg/dL (8.5-10.1)
[2022-12-01 11:41] LABS: CREATININE 0.8 mg/dL (0.55-1.3)
[2022-12-01 11:43] LABS: TOT PROT 6.9 g/dl (6.4-8.2)
[2022-12-01 11:46] LABS: BILIRUBIN,TOTAL 0.6 mg/dL (0.2-1)
[2022-12-01] MEDS: POLYETHYLENE GLYCOL (HEALTHYLAX) 3350 17 GM PACKET PO SCH ×2 (16:09→21:47)
[2022-12-01] MEDS ORDERED: GABAPENTIN 100 MG CAPSULE PO ONE (18:13)
[2022-12-01 18:52] VITALS: RESP 18
[2022-12-02] MEDS: PIPERACILLIN/TAZOB 3.375 GM 3.375 GM in DEXTROSE 5%-WATER - 50 ML IVPB SCH (01:47)
[2022-12-02] MEDS: POLYETHYLENE GLYCOL (HEALTHYLAX) 3350 17 GM PACKET PO SCH ×3 (05:29→21:50)
[2022-12-02] MEDS ORDERED: CASPOFUNGIN ACETATE 70 MG in SODIUM CHLORIDE 250 ML IVPB ONE (09:00)
[2022-12-02] MEDS: TAMSULOSIN HCL 0.4 MG CAP PO SCH (09:36)
[2022-12-02] MEDS: DEXTROSE 5%-NORMAL SALINE 1,000 ML IV SCH ×2 (09:38→17:01)
[2022-12-02 12:23] LABS: BASO % 0.8 % (0-2.0); EOS % 3.9 % (0-4.5); HEMATOCRIT 33.7 % (32.4-45.2); HEMOGLOBIN 10.9 GM/dL (10.7-15.3); LYMPH % 26.4 % (8-40); MCH 27.6 pg (25.7-33.7); MCHC 32.4 g/dl (32.0-36.0); MEAN CELL VOLUME 85.3 fl (80-96); MEAN PLT VOLUME 10.5 fl (7.5-11.1); MONO % 9.5 % (3.8-10.2); NEUT % 59.4 % (42.8-82.8); PLATELET COUNT 177 10^3/uL (134-434); RBC 3.95 M/mm3 (3.60-5.2); RDW 14.5 % (11.6-15.6); WHITE BLOOD COUNT 4.6 K/mm3 (4.0-10.0)
[2022-12-02 12:46] LABS: POTASSIUM 3.3 mmol/L (3.5-5.1)
[2022-12-02 12:49] LABS: CALCIUM 8.9 mg/dL (8.5-10.1)
[2022-12-02 12:50] LABS: ALBUMIN 2.8 g/dl (3.4-5.0); BLOOD UREA NITROGEN 14.9 mg/dL (7-18)
[2022-12-02 12:55] LABS: BILIRUBIN,TOTAL 0.5 mg/dL (0.2-1); TOT PROT 6.4 g/dl (6.4-8.2)
[2022-12-02 13:11] LABS: CREATININE 0.8 mg/dL (0.55-1.3)
[2022-12-02] MEDS ORDERED: DEXAMETHASONE SOD PHOSPHATE 4 MG/1 ML VIAL IVPUSH ONE (16:03)
[2022-12-03] MEDS: POLYETHYLENE GLYCOL (HEALTHYLAX) 3350 17 GM PACKET PO SCH ×3 (05:45→22:05)
[2022-12-03 10:05] LABS: BASO % 0.5 % (0-2.0); EOS % 0.2 % (0-4.5); HEMATOCRIT 38.7 % (32.4-45.2); HEMOGLOBIN 12.8 GM/dL (10.7-15.3); LYMPH % 24.7 % (8-40); MEAN CELL VOLUME 84.8 fl (80-96); MEAN PLT VOLUME 9.9 fl (7.5-11.1); MONO % 7.1 % (3.8-10.2); NEUT % 67.5 % (42.8-82.8); PLATELET COUNT 219 10^3/uL (134-434); RBC 4.57 M/mm3 (3.60-5.2); RDW 14.5 % (11.6-15.6); WHITE BLOOD COUNT 4.6 K/mm3 (4.0-10.0)
[2022-12-03] MEDS: TAMSULOSIN HCL 0.4 MG CAP PO SCH (10:22)
[2022-12-03] MEDS: CASPOFUNGIN ACETATE 50 MG in SODIUM CHLORIDE 250 ML IVPB SCH (10:22)
[2022-12-03 10:23] LABS: POTASSIUM 3.5 mmol/L (3.5-5.1)
[2022-12-03 10:25] LABS: CALCIUM 9.6 mg/dL (8.5-10.1)
[2022-12-03 10:28] LABS: CREATININE 0.7 mg/dL (0.55-1.3)
[2022-12-03 10:30] LABS: BILIRUBIN,TOTAL 0.5 mg/dL (0.2-1); TOT PROT 7.6 g/dl (6.4-8.2)
[2022-12-03 10:37] LABS: ALBUMIN 3.4 g/dl (3.4-5.0)
[2022-12-03] MEDS: DEXTROSE 5%-NORMAL SALINE 1,000 ML IV SCH (13:40)
[2022-12-04] MEDS: POLYETHYLENE GLYCOL (HEALTHYLAX) 3350 17 GM PACKET PO SCH ×2 (06:44→21:36)
[2022-12-04] MEDS: TAMSULOSIN HCL 0.4 MG CAP PO SCH (09:35)
[2022-12-04] MEDS: CASPOFUNGIN ACETATE 50 MG in SODIUM CHLORIDE 250 ML IVPB SCH (09:35)
[2022-12-04] MEDS: DEXTROSE 5%-NORMAL SALINE 1,000 ML IV SCH (13:25)
[2022-12-04 17:01] LABS: POTASSIUM 3.4 mmol/L (3.5-5.1)
[2022-12-04 17:03] LABS: CALCIUM 8.4 mg/dL (8.5-10.1)
[2022-12-04 17:04] LABS: ALBUMIN 2.9 g/dl (3.4-5.0); BLOOD UREA NITROGEN 17.3 mg/dL (7-18)
[2022-12-04 17:07] LABS: CREATININE 0.7 mg/dL (0.55-1.3)
[2022-12-04 17:09] LABS: BILIRUBIN,TOTAL 0.2 mg/dL (0.2-1); TOT PROT 6.4 g/dl (6.4-8.2)
[2022-12-05 08:08] LABS: POTASSIUM 3.3 mmol/L (3.5-5.1)
[2022-12-05 08:10] LABS: CALCIUM 8.4 mg/dL (8.5-10.1)
[2022-12-05 08:11] LABS: ALBUMIN 2.8 g/dl (3.4-5.0); BLOOD UREA NITROGEN 10.6 mg/dL (7-18)
[2022-12-05 08:14] LABS: CREATININE 0.5 mg/dL (0.55-1.3)
[2022-12-05 08:15] LABS: TOT PROT 6.2 g/dl (6.4-8.2)
[2022-12-05 08:16] LABS: BILIRUBIN,TOTAL 0.4 mg/dL (0.2-1)
[2022-12-05] MEDS: CASPOFUNGIN ACETATE 50 MG in SODIUM CHLORIDE 250 ML IVPB SCH (09:20)
[2022-12-05] MEDS: TAMSULOSIN HCL 0.4 MG CAP PO SCH (09:20)
[2022-12-05] MEDS: POLYETHYLENE GLYCOL (HEALTHYLAX) 3350 17 GM PACKET PO SCH ×2 (09:22→21:48)
[2022-12-06] MEDS ORDERED: traMADol HCL 50 MG TABLET PO PRN (10:18)
[2022-12-06] MEDS: TAMSULOSIN HCL 0.4 MG CAP PO SCH (10:24)
[2022-12-06] MEDS: CASPOFUNGIN ACETATE 50 MG in SODIUM CHLORIDE 250 ML IVPB SCH (10:24)
[2022-12-06] MEDS: POLYETHYLENE GLYCOL (HEALTHYLAX) 3350 17 GM PACKET PO SCH ×2 (10:24→22:04)
[2022-12-06 10:45] LABS: BASO % 0.5 % (0-2.0); HEMATOCRIT 37.9 % (32.4-45.2); HEMOGLOBIN 12.2 GM/dL (10.7-15.3); LYMPH % 28.2 % (8-40); MCH 27.6 pg (25.7-33.7); MCHC 32.3 g/dl (32.0-36.0); MEAN CELL VOLUME 85.4 fl (80-96); MEAN PLT VOLUME 9.7 fl (7.5-11.1); MONO % 5.2 % (3.8-10.2); NEUT % 63.1 % (42.8-82.8); PLATELET COUNT 297 10^3/uL (134-434); RBC 4.44 M/mm3 (3.60-5.2); RDW 15.3 % (11.6-15.6); WHITE BLOOD COUNT 7.9 K/mm3 (4.0-10.0)
[2022-12-06 11:08] LABS: POTASSIUM 3.7 mmol/L (3.5-5.1)
[2022-12-06 11:11] LABS: ANISOCYTOSIS 1+; BLOOD UREA NITROGEN 14.7 mg/dL (7-18); CALCIUM 9.4 mg/dL (8.5-10.1); MACROCYTOSIS 1+
[2022-12-06 11:14] LABS: CREATININE 0.8 mg/dL (0.55-1.3)
[2022-12-06 11:16] LABS: BILIRUBIN,TOTAL 0.6 mg/dL (0.2-1); TOT PROT 7.4 g/dl (6.4-8.2)
[2022-12-06 11:24] LABS: ALBUMIN 3.4 g/dl (3.4-5.0)
[2022-12-07] MEDS: POLYETHYLENE GLYCOL (HEALTHYLAX) 3350 17 GM PACKET PO SCH (09:32)
[2022-12-07] MEDS: TAMSULOSIN HCL 0.4 MG CAP PO SCH (09:32)
[2022-12-07] MEDS: CASPOFUNGIN ACETATE 50 MG in SODIUM CHLORIDE 250 ML IVPB SCH (09:32)
[2022-12-07 13:22] VITALS: BP 121/78; PULSE 88; TEMP 98.5
[2022-12-09 12:07] LABS: CA OXALATE MONOHYDR. 50 % (.); SIZE 3x3 mm (.); WEIGHT 8 mg (.)
== END 2022-12-07 15:05 | disposition home or self-care (01) | DRG 660 ==
LOC: JER 15:19 → JERBED 18:27 → J5S 11-28 04:07
PROVIDERS: ADMIT Internal Medicine; ATTEND Family Medicine
PROC: 0TC68ZZ Extirpation of Matter from Right Ureter, Via Natural or Artificial Opening Endoscopic (ICD-10-PCS; 2022-11-30)
PROC: BT1DZZZ Fluoroscopy of Right Kidney, Ureter and Bladder (ICD-10-PCS; 2022-11-30)
PROC: B518ZZA Fluoroscopy of Superior Vena Cava, Guidance (ICD-10-PCS; 2022-11-30 10:00)
PROC: 02HV33Z Insertion of Infusion Device into Superior Vena Cava, Percutaneous Approach (ICD-10-PCS; principal; 2022-12-07)
PROC: 0T768DZ Dilation of Right Ureter with Intraluminal Device, Via Natural or Artificial Opening Endoscopic (ICD-10-PCS; 2022-12-07)
DX: N13.6 Pyonephrosis (principal); B49 Unspecified mycosis; I10 Essential (primary) hypertension; E11.9 Type 2 diabetes mellitus without complications; J44.9 Chronic obstructive pulmonary disease, unspecified; I25.10 Atherosclerotic heart disease of native coronary artery without angina pectoris; K76.0 Fatty (change of) liver, not elsewhere classified; R79.89 Other specified abnormal findings of blood chemistry; G44.209 Tension-type headache, unspecified, not intractable; R50.9 Fever, unspecified; K59.00 Constipation, unspecified
CPT/HCPCS: 36415; 36569; 70450-TC; 71045-TC-FY; 71250-TC; 74176-TC; 74181-TC; 76000-TC-FY; 76705-TC; 76775-TC; 80048; 80053; 81003; 82360; 82550; 82962; 82977; 83516; 85025; 85610; 86038; 86140; 86704; 86708; 86803; 87040; 87086; 87106; 87340; 87517; 88300-TC; 93005; 93010; 93306-TC; 94760; 99285-25; C1758; C2617; J0637

== ENCOUNTER 2022-12-08 13:02 | Day surgery (SDC) | payer OTHER ==
[2022-12-08] MEDS ORDERED: CASPOFUNGIN ACETATE 50 MG in SODIUM CHLORIDE 250 ML IVPB ONE (13:30)
[2022-12-08 14:52] VITALS: BP 126/72; PULSE 68; RESP 18; TEMP 97.6
== END 2022-12-08 14:54 | disposition home or self-care (01) ==
LOC: FINFUSION 13:02 → FM/S 13:06 → FINFUSION 14:54
PROVIDERS: ATTEND Internal Medicine
DX: B49 Unspecified mycosis (principal)
CPT/HCPCS: 96365; J0637

== ENCOUNTER 2022-12-09 13:19 | Day surgery (SDC) | payer OTHER ==
[2022-12-09] MEDS ORDERED: CASPOFUNGIN ACETATE 50 MG in SODIUM CHLORIDE 250 ML IVPB ONE (14:00)
[2022-12-09 15:23] VITALS: BP 148/71; PULSE 67; RESP 19; TEMP 98.4
== END 2022-12-09 15:10 | disposition home or self-care (01) ==
LOC: FINFUSION 13:19 → FM/S 13:20 → FINFUSION 14:10
PROVIDERS: ATTEND Internal Medicine
DX: B49 Unspecified mycosis (principal)
CPT/HCPCS: 96365; J0637

== ENCOUNTER 2022-12-10 13:07 | Day surgery (SDC) | payer OTHER ==
[2022-12-10] MEDS ORDERED: CASPOFUNGIN ACETATE 50 MG in SODIUM CHLORIDE 250 ML IVPB ONE (13:30)
[2022-12-10 15:39] VITALS: BP 141/82; PULSE 78; RESP 16; TEMP 98.2
== END 2022-12-10 15:39 | disposition home or self-care (01) ==
LOC: FINFUSION 13:07 → FM/S 13:08 → FINFUSION 15:39
PROVIDERS: ATTEND Internal Medicine
DX: B49 Unspecified mycosis (principal)
CPT/HCPCS: 96365; J0637

== ENCOUNTER 2022-12-11 00:34 | Emergency (ER) | payer OTHER ==
[2022-12-11 00:48] VITALS: TEMP 98; BMI 30.2
[2022-12-11] MEDS ORDERED: SODIUM CHLORIDE 1,000 ML IV ONE (01:03)
[2022-12-11] MEDS ORDERED: morphine CARPU-JECT 4 MG/1 ML DISP.SYRIN IVPUSH ONE (01:04)
[2022-12-11] MEDS ORDERED: ACETAMINOPHEN INJECTION 100 ML IVPB ONE (01:20)
[2022-12-11] MEDS ORDERED: ACETAMINOPHEN 500 MG TABLET (FP) PO ONE (01:20)
[2022-12-11 01:57] LABS: HEMATOCRIT 36.9 % (32.4-45.2); HEMOGLOBIN 12.4 GM/dL (10.7-15.3); MCH 28.2 pg (25.7-33.7); MCHC 33.7 g/dl (32.0-36.0); MEAN CELL VOLUME 83.8 fl (80-96); MEAN PLT VOLUME 9.9 fl (7.5-11.1); PLATELET COUNT 237 10^3/uL (134-434); RDW 15.4 % (11.6-15.6); WHITE BLOOD COUNT 7.1 K/mm3 (4.0-10.0)
[2022-12-11 02:18] LABS: POTASSIUM 4.2 mmol/L (3.5-5.1)
[2022-12-11] MEDS ORDERED: ACETAMINOPHEN 1000 MG/100 ML BAG IVPB ONE (02:19)
[2022-12-11 02:20] LABS: CALCIUM 9.5 mg/dL (8.5-10.1); MAGNESIUM 2.4 mg/dL (1.8-2.4)
[2022-12-11 02:21] LABS: ALBUMIN 3.6 g/dl (3.4-5.0); BLOOD UREA NITROGEN 13.8 mg/dL (7-18)
[2022-12-11 02:23] LABS: CREATININE 0.6 mg/dL (0.55-1.3)
[2022-12-11 02:24] LABS: PHOSPHOROUS 2.9 mg/dL (2.5-4.9)
[2022-12-11 02:25] LABS: TOT PROT 7.8 g/dl (6.4-8.2)
[2022-12-11 02:26] LABS: BILIRUBIN,TOTAL 0.6 mg/dL (0.2-1)
[2022-12-11 03:04] VITALS: BP 153/82; PULSE 65; RESP 16
== END 2022-12-11 03:06 | disposition home or self-care (01) ==
LOC: FER 00:34
PROC: 3E033NZ Introduction of Analgesics, Hypnotics, Sedatives into Peripheral Vein, Percutaneous Approach (ICD-10-PCS; principal; 2022-12-11)
PROC: 3E0337Z Introduction of Electrolytic and Water Balance Substance into Peripheral Vein, Percutaneous Approach (ICD-10-PCS; 2022-12-11)
DX: R10.11 Right upper quadrant pain (principal); Z20.822 Contact with and (suspected) exposure to COVID-19
CPT/HCPCS: 0241U-QW; 36415; 71045-TC-FY; 76705-TC; 80053; 82550; 83605; 83690; 83735; 84100; 84484; 85027; 93005; 99285-25

== ENCOUNTER 2022-12-11 13:14 | Day surgery (SDC) | payer OTHER ==
[2022-12-11] MEDS ORDERED: CASPOFUNGIN ACETATE 50 MG in SODIUM CHLORIDE 250 ML IVPB ONE (13:30)
[2022-12-11 15:03] VITALS: BP 124/65; PULSE 75; RESP 16; TEMP 99
== END 2022-12-11 15:09 | disposition home or self-care (01) ==
LOC: FINFUSION 13:14 → FM/S 13:18 → FINFUSION 15:09
PROVIDERS: ATTEND Internal Medicine
DX: B49 Unspecified mycosis (principal)
CPT/HCPCS: 96365; J0637

== ENCOUNTER 2022-12-12 13:08 | Day surgery (SDC) | payer OTHER ==
[2022-12-12] MEDS ORDERED: CASPOFUNGIN ACETATE 50 MG in SODIUM CHLORIDE 250 ML IVPB SCH (13:45)
[2022-12-12 15:32] VITALS: BP 149/79; PULSE 72; RESP 16; TEMP 98.2
== END 2022-12-12 15:32 | disposition home or self-care (01) ==
LOC: FINFUSION 13:08 → FM/S 13:09 → FINFUSION 15:32
PROVIDERS: ATTEND Internal Medicine
DX: B49 Unspecified mycosis (principal)
CPT/HCPCS: 96365; J0637

== ENCOUNTER 2022-12-13 12:59 | Day surgery (SDC) | payer OTHER ==
[2022-12-13] MEDS ORDERED: CASPOFUNGIN ACETATE 50 MG in SODIUM CHLORIDE 250 ML IVPB ONE (14:00)
[2022-12-13 14:50] VITALS: BP 142/78; PULSE 84; RESP 16; TEMP 98.7
== END 2022-12-13 14:50 | disposition home or self-care (01) ==
LOC: FINFUSION 12:59 → FM/S 13:00 → FINFUSION 14:50
PROVIDERS: ATTEND Internal Medicine
DX: B49 Unspecified mycosis (principal)
CPT/HCPCS: 96365; J0637

== ENCOUNTER 2022-12-14 13:13 | Day surgery (SDC) | payer OTHER ==
[2022-12-14] MEDS ORDERED: CASPOFUNGIN ACETATE 50 MG in SODIUM CHLORIDE 250 ML IVPB ONE (13:45)
[2022-12-14 15:10] VITALS: BP 142/65; PULSE 65; RESP 16; TEMP 98.1
== END 2022-12-14 15:10 | disposition home or self-care (01) ==
LOC: FM/S 13:13 → FINFUSION 13:13
PROVIDERS: ATTEND Internal Medicine
DX: B49 Unspecified mycosis (principal)
CPT/HCPCS: 96365; 96366; J0637

== ENCOUNTER 2022-12-15 13:11 | Day surgery (SDC) | payer OTHER ==
[2022-12-15] MEDS ORDERED: CASPOFUNGIN ACETATE 50 MG in SODIUM CHLORIDE 250 ML IVPB ONE (13:45)
[2022-12-15 17:12] VITALS: BP 146/70; PULSE 71; RESP 18; TEMP 98.1
== END 2022-12-15 15:30 | disposition home or self-care (01) ==
LOC: FINFUSION 13:11 → FM/S 13:13 → FINFUSION 15:30
PROVIDERS: ATTEND Internal Medicine
DX: B49 Unspecified mycosis (principal)
CPT/HCPCS: 96365; J0637

== ENCOUNTER 2023-07-31 15:27 | Emergency (ER) | payer OTHER ==
[2023-07-31 15:32] VITALS: BMI 30.2
[2023-07-31] MEDS ORDERED: METOCLOPRAMIDE HCL INJECTION 10 MG/2 ML VIAL ONE (15:57)
[2023-07-31] MEDS ORDERED: MECLIZINE HCL 25 MG TABLET (FP) ONE (15:57)
[2023-07-31] MEDS: MECLIZINE HCL 25 MG TABLET (FP) PO ONE (16:00)
[2023-07-31] MEDS: SODIUM CHLORIDE 1,000 ML IV ONE (16:15)
[2023-07-31] MEDS: METOCLOPRAMIDE HCL INJECTION 10 MG/2 ML VIAL IVPUSH ONE (16:20)
[2023-07-31 16:44] LABS: MCHC 31.9 g/dl (32.0-36.0); MEAN CELL VOLUME 87.8 fl (80-96); MEAN PLT VOLUME 11.7 fl (7.5-11.1); PLATELET COUNT 137.5 10^3/uL (134-434); RBC 5.01 10^6/uL (3.60-5.2); RDW 14.6 % (11.6-15.6); WHITE BLOOD COUNT 5.7 10^3/uL (4.0-10.8)
[2023-07-31 16:51] LABS: INR 0.86 (0.83-1.09); PROTHROMBIN TIME (PATIENT) 9.9 SEC (9.7-13.0)
[2023-07-31 16:55] LABS: ALBUMIN 4.5 g/dl (3.4-5.0); ALK PHOS 104 U/L (45-117); ANION GAP 8 mmol/L (4-13); BILIRUBIN,TOTAL 0.7 mg/dl (0.2-1); CALCIUM 10.2 mg/dl (8.5-10.1); CHLORIDE 106 mmol/L (98-107); CO2 26 mmol/L (21-32); CREATININE 0.7 mg/dl (0.6-1.3); GLUCOSE,RANDOM 111 mg/dl (74-106); POTASSIUM 4.4 mmol/L (3.5-5.1); SGOT/AST 21 U/L (15-37); SGPT/ALT 25 U/L (7-52); SODIUM 140 mmol/L (136-145); TOT PROT 6.8 g/dl (6.4-8.2)
[2023-07-31 17:24] LABS: EPITHELIAL CELLS 0-5 /hpf
[2023-07-31] MEDS ORDERED: ACETAMINOPHEN INJECTION 100 ML IVPB ONE (17:39)
[2023-07-31] MEDS ORDERED: MAGNESIUM SULFATE IN WATER 2 GM/50 ML IVPB IVPB ONE (17:39)
[2023-07-31] MEDS: ACETAMINOPHEN 1000 MG/100 ML BAG IVPB ONE (17:40)
[2023-07-31 17:42] LABS: VENOUS BASE EXCESS -0.1 mmol/L (-2-2); VENOUS O2 SATURATION 62.5 % (70-80); VENOUS PCO2 46.8 mmHg (38-52); VENOUS PH 7.36 (7.310-7.410)
[2023-07-31] MEDS: MAGNESIUM SULFATE IN WATER 2 GM/50 ML IVPB IVPB ONE (17:57)
[2023-07-31] MEDS ORDERED: LOSARTAN POTASSIUM 50 MG TABLET ONE (19:22)
[2023-07-31] MEDS: LOSARTAN POTASSIUM 50 MG TABLET PO ONE (19:25)
[2023-07-31 20:24] VITALS: BP 163/87; PULSE 60; RESP 17; TEMP 98.3
== END 2023-07-31 21:36 | disposition home or self-care (01) ==
LOC: SUPCPDRO 15:27 → FER 15:27
PROC: 3E033GC Introduction of Other Therapeutic Substance into Peripheral Vein, Percutaneous Approach (ICD-10-PCS; principal; 2023-07-31)
PROC: 3E033GC Introduction of Other Therapeutic Substance into Peripheral Vein, Percutaneous Approach (ICD-10-PCS; 2023-07-31)
PROC: 3E033NZ Introduction of Analgesics, Hypnotics, Sedatives into Peripheral Vein, Percutaneous Approach (ICD-10-PCS; 2023-07-31)
PROC: 3E0337Z Introduction of Electrolytic and Water Balance Substance into Peripheral Vein, Percutaneous Approach (ICD-10-PCS; 2023-07-31)
DX: G44.209 Tension-type headache, unspecified, not intractable (principal); R42 Dizziness and giddiness; R11.0 Nausea
CPT/HCPCS: 36415; 70450-TC; 70496-TC; 70498-TC; 80053; 81003; 81015; 82010; 82803; 85027; 85610; 93005; 99285-25; J0131

== ENCOUNTER 2024-08-02 07:09 | Day surgery (SDC) | payer OTHER ==
[2024-07-27 12:13] VITALS: BMI 29.7
[2024-08-02 07:53] VITALS: TEMP 97.4
[2024-08-02] MEDS ORDERED: PROPOFOL 20 ML ONE (10:23)
[2024-08-02] MEDS ORDERED: MIDAZOLAM HCL 2 MG/2 ML SINGLE DOSE VIAL ONE (10:23)
[2024-08-02] MEDS ORDERED: ONDANSETRON 4 MG/2 ML VIAL IVPUSH PRN (10:28)
[2024-08-02] MEDS ORDERED: oxyCODONE HCL 5 MG TABLET PO PRN ×2 (10:28)
[2024-08-02] MEDS ORDERED: PROMETHAZINE HCL 25 MG/1 ML VIAL IVPB PRN (10:28)
[2024-08-02] MEDS ORDERED: LACTATED RINGERS SOLUTION 1,000 ML IV SCH (10:30)
[2024-08-02] MEDS ORDERED: ONDANSETRON 4 MG/2 ML VIAL ONE (10:57)
[2024-08-02] MEDS ORDERED: DEXAMETHASONE SOD PHOSPHATE 4 MG/1 ML VIAL ONE ×2 (10:57)
[2024-08-02] MEDS ORDERED: ACETAMINOPHEN INJECTION 100 ML ONE (11:34)
[2024-08-02] MEDS ORDERED: FENTANYL CITRATE/PF 50 MCG/ML VIAL ONE ×2 (12:13→12:39)
[2024-08-02 14:16] VITALS: RESP 16
[2024-08-02 15:29] VITALS: BP 116/63; PULSE 74
== END 2024-08-02 14:45 | disposition home or self-care (01) ==
LOC: FASU 07:09
PROVIDERS: ATTEND Surgery Surgical Oncology
PROC: 0HBT0ZZ Excision of Right Breast, Open Approach (ICD-10-PCS; principal; 2024-08-02 11:04)
DX: C50.911 Malignant neoplasm of unspecified site of right female breast (principal)
CPT/HCPCS: 76098-TC-FY; 82962; 88307-TC; 88341-TC; 88342-TC; 94760

== ENCOUNTER 2024-09-06 06:32 | Inpatient (IN) | payer OTHER ==
[2024-09-01 15:02] VITALS: BMI 29.2
[2024-09-06] MEDS ORDERED: VANCOMYCIN 1,000 MG VIAL (RESTRICTED TO ID ONLY) ONE (09:56)
[2024-09-06] MEDS ORDERED: BACITRACIN ZINC 15 GM TUBE TOPICAL OINTMENT ONE (09:57)
[2024-09-06] MEDS ORDERED: GENTAMICIN SO4 80 MG/2 ML VIAL ONE (09:57)
[2024-09-06] MEDS ORDERED: LIDOCAINE 1%/EPI 1:100000 (20 ML MULTI DOSE VIAL) ONE (09:57)
[2024-09-06] MEDS ORDERED: BUPIVACAINE HCL/PF 0.5% (5MG/ML) 10 ML VIAL ONE (09:57)
[2024-09-06] MEDS ORDERED: BUPIVACAINE LIPOSOME/PF (EXPAREL) 266 MG/20 ML VIAL ONE (10:35)
[2024-09-06] MEDS ORDERED: BUPIVACAINE HCL/PF 0.25% (2.5MG/ML) 10 ML VIAL ONE (10:35)
[2024-09-06] MEDS ORDERED: MIDAZOLAM HCL 2 MG/2 ML SINGLE DOSE VIAL ONE (10:37)
[2024-09-06] MEDS ORDERED: PROPOFOL 40 ML ONE (10:37)
[2024-09-06] MEDS ORDERED: ROCURONIUM BROMIDE 50 MG/5 ML SYRINGE ONE ×2 (10:37→12:36)
[2024-09-06] MEDS: VANCOMYCIN 1,000 MG VIAL (RESTRICTED TO ID ONLY) IVPB ONE (11:33)
[2024-09-06] MEDS: GENTAMICIN SO4 80 MG/2 ML VIAL IVPB ONE (11:33)
[2024-09-06] MEDS ORDERED: ONDANSETRON 4 MG/2 ML VIAL IVPUSH PRN ×2 (12:13→15:10)
[2024-09-06] MEDS ORDERED: SUGAMMADEX SODIUM 200 MG/2 ML VIAL ONE (13:55)
[2024-09-06] MEDS: LACTATED RINGERS SOLUTION 1,000 ML IV SCH (15:11)
[2024-09-06] MEDS ORDERED: ACETAMINOPHEN 325 MG TABLET (FP) PO PRN (15:30)
[2024-09-06 17:49] VITALS: RESP 18
[2024-09-06] MEDS ORDERED: CEFAZOLIN 1 GM in DEXTROSE 5%-WATER - 50 ML IVPB SCH (18:00)
[2024-09-06] MEDS: CEFAZOLIN 1 GM/D5W 1 GM/50 ML BAG IVPB SCH (18:14)
[2024-09-06] MEDS: CEFAZOLIN 1 GM in DEXTROSE 5%-WATER - 50 ML IVPB SCH (18:23)
[2024-09-06] MEDS: ONDANSETRON 4 MG/2 ML VIAL IVPUSH PRN (19:10)
[2024-09-06] MEDS: ACETAMINOPHEN 325 MG TABLET (FP) PO PRN (21:32)
[2024-09-07] MEDS: LACTATED RINGERS SOLUTION 1,000 ML IV SCH (03:19)
[2024-09-07] MEDS: ACETAMINOPHEN 325 MG TABLET (FP) PO PRN (03:42)
[2024-09-07] MEDS: metFORMIN HCL 500 MG TABLET (FP) PO SCH (06:08)
[2024-09-07] MEDS: PANTOPRAZOLE 20 MG TABLET PO SCH (09:28)
[2024-09-07] MEDS: LOSARTAN POTASSIUM 50 MG TABLET PO SCH (09:28)
[2024-09-07] MEDS: HYDROCHLOROTHIAZIDE 25 MG TABLET (FP) PO SCH (09:28)
[2024-09-07 13:44] VITALS: BP 112/65; PULSE 70; TEMP 98.2
== END 2024-09-07 14:54 | disposition home health service (06) | DRG 362 ==
LOC: J2C 06:32 → EDSTATUS 10:00 → J8W 17:10
PROVIDERS: ADMIT Surgery Surgical Oncology; ATTEND Surgery Surgical Oncology
PROC: 0HHV0NZ Insertion of Tissue Expander into Bilateral Breast, Open Approach (ICD-10-PCS; 2024-09-06)
PROC: 0H0V0JZ Alteration of Bilateral Breast with Synthetic Substitute, Open Approach (ICD-10-PCS; 2024-09-06)
PROC: 0HTV0ZZ Resection of Bilateral Breast, Open Approach (ICD-10-PCS; principal; 2024-09-06 10:00)
PROC: 07B50ZX Excision of Right Axillary Lymphatic, Open Approach, Diagnostic (ICD-10-PCS; 2024-09-06 10:00)
DX: C50.911 Malignant neoplasm of unspecified site of right female breast (principal); E11.9 Type 2 diabetes mellitus without complications; E78.5 Hyperlipidemia, unspecified; I10 Essential (primary) hypertension; I25.10 Atherosclerotic heart disease of native coronary artery without angina pectoris
CPT/HCPCS: 78195-TC; 82962; 86850; 86900; 86901; 88305-TC; 88307-TC; 88342-TC; 93005; 93010; 94760; A9541; J0666